=== PATIENT | female | born 1980 | race American Indian/Alaskan Native ===

== ENCOUNTER 2020-12-02 20:08 | Emergency (ER) | payer SELFPAY ==
[~2020-12-02] VITALS: Ht 160 cm; Wt 119.6 kg
[2020-12-02] MEDS ORDERED: DIVA500T9 PO (20:31)
[2020-12-02] MEDS ORDERED: HYDR12.55 PO (20:31)
[2020-12-02] MEDS ORDERED: CYCL5TAB PO (20:31)
[2020-12-02] MEDS ORDERED: IBUP200C25 PO (20:31)
[2020-12-02] MEDS ORDERED: CLON0.12 PO (20:31)
[2020-12-02] MEDS ORDERED: NS 500 ML IV ONE (20:40)
[2020-12-02] MEDS ORDERED: levETIRAcetam INJection 1,000 MG in D5W 100 ML IV ONE (20:45)
[2020-12-02 21:01] LABS: BASO # 0.1 10^3/uL (0.0-0.2); BASO % 0.5 % (0.0-1.0); EOS % 0.4 % (0.0-3.0); HEMATOCRIT 46.7 % (36.0-47.0); LYMPH # 1.4 10^3/uL (1.5-5.0); MEAN CORPUSCULAR HEMOGLOBIN 31.5 pg (27.0-33.0); MEAN CORPUSCULAR HGB CONC 34.3 g/dl (32.0-36.5); MEAN CORPUSCULAR VOLUME 91.9 fl (80.0-96.0); MONO # 0.6 10^3/uL (0.0-0.8); MONO % 5.2 % (2.0-8.0); NEUTROPHILS # 9.2 10^3/uL (1.5-8.5); NEUTROPHILS % 81.4 % (36.0-66.0); PLATELET COUNT, AUTOMATED 250 10^3/uL (150-450); RED BLOOD COUNT 5.08 10^6/uL (4.00-5.40); WHITE BLOOD COUNT 11.3 10^3/uL (4.0-10.0)
[2020-12-02 21:03] LABS: OSMOLALITY SERUM 287 MOSM/KG (275-295)
[2020-12-02 21:14] LABS: ACETAMINOPHEN LEVEL < 2.0 UG/ML (10.0-30.0); ALBUMIN 3.8 GM/DL (3.2-5.2); ALT/SGPT 25 U/L (12-78); BILIRUBIN,DIRECT 0.1 MG/DL (0.0-0.2); BILIRUBIN,TOTAL 0.5 MG/DL (0.2-1.0); BLOOD UREA NITROGEN 13 MG/DL (7-18); CALCIUM LEVEL 9.7 MG/DL (8.5-10.1); CARBON DIOXIDE LEVEL 31 MEQ/L (21-32); CHLORIDE LEVEL 98 MEQ/L (98-107); CK-MB VALUE MASS < 1.0 NG/ML (<3.6); CPK CREATINE PHOSPHOKINASE 147 U/L (26-192); CREATININE FOR GFR 0.91 MG/DL (0.55-1.30); ETHYL ALCOHOL (ETHANOL) < 0.003 % (0.000-0.010); GLOMERULAR FILTRATION RATE > 60.0 (>58); GLUCOSE, FASTING 117 MG/DL (70-100); MB/CK RELATIVE INDEX 0.68 (< OR =4); SALICYLATE LEVEL 4.5 MG/DL (5.0-30.0); SODIUM LEVEL 135 MEQ/L (136-145); TOTAL PROTEIN 7.3 GM/DL (6.4-8.2); TROPONIN I < 0.02 NG/ML (< 0.10); VALPROIC ACID (DEPAKOTE) 60.6 UG/ML (50.0-100.0)
--- NOTE | 2020-12-02 21:30 | REPVR ---
PROCEDURE INFORMATION: Exam: XR Chest Exam date and time: 12/02/2020 9:02 PM Age: 39 years old Clinical indication: Other: AMS; Additional info: Altered mental status TECHNIQUE: Imaging protocol: XR of the chest. Views: 1 view. COMPARISON: No relevant prior studies available. FINDINGS: Lungs: Unremarkable. No consolidation. Pleural spaces: Unremarkable. No pleural effusion. No pneumothorax. Heart/Mediastinum: Unremarkable. No cardiomegaly. Bones/joints: Unremarkable. IMPRESSION: No acute findings. Electronically signed by: Napoleon Cade On 12/02/2020 21:30:08 PM
[2020-12-02 21:40] LABS: AMPHETAMINES LEVEL URINE NEGATIVE (NEGATIVE); BARBITURATES URINE NEGATIVE (NEGATIVE); BENZODIAZEPINES URINE NEGATIVE (NEGATIVE); CANNABINOIDS URINE POSITIVE (NEGATIVE); COCAINE METABOLITE URINE NEGATIVE (NEGATIVE); METHADONE URINE NEGATIVE (NEGATIVE); OPIATES URINE NEGATIVE (NEGATIVE); PHENCYCLIDINE URINE NEGATIVE (NEGATIVE)
--- NOTE | 2020-12-02 21:56 | REPVR ---
PROCEDURE INFORMATION: Exam: CT Head Without Contrast Exam date and time: 12/02/2020 9:53 PM Age: 39 years old Clinical indication: Altered mental status/memory loss TECHNIQUE: Imaging protocol: Computed tomography of the head without contrast. Radiation optimization: All CT scans at this facility use at least one of these dose optimization techniques: automated exposure control; mA and/or kV adjustment per patient size (includes targeted exams where dose is matched to clinical indication); or iterative reconstruction. COMPARISON: No relevant prior studies available. FINDINGS: Brain: Normal. No hemorrhage. Unremarkable white matter. No mass effect. Postoperative encephalomalacia base of the left frontal lobe. Cerebral ventricles: No ventriculomegaly. Bones/joints: Status post left frontal craniotomy. Paranasal sinuses: Visualized sinuses are unremarkable. No fluid levels. Mastoid air cells: Visualized mastoid air cells are well aerated. Soft tissues: Unremarkable. IMPRESSION: No acute findings. Electronically signed by: Napoleon Cade On 12/02/2020 21:56:51 PM
[2020-12-02 23:52] VITALS: BP 141/81
--- NOTE | 2020-12-03 02:47 | ECGEPIP ---
[facility] - ED Test Date: 2020-12-02 Pat Name: GREG BARRIGA Department: Room: - Gender: Female Pharmacy Care Coordinator: : 1980 Requested By: MANOJ CORTEZ Order Number: [id number] Reading MD: Chase Tillman Measurements Intervals [place] Rate: 89 P: 59 VT: 162 QRS: -37 QRSD: 94 T: 49 QT: 360 QTc: 438 Interpretive Statements Normal sinus rhythm Left axis deviation Minimal voltage criteria for LVH, may be normal variant ( [place] product ) POOR R WAVE PROGRESSION NO PRIORS FOR COMPARISON Electronically Signed on 12-03-2020 2:47:20 EDT by Chase Tillman
== END 2020-12-02 23:54 | disposition left against medical advice (07) ==
LOC: M ED 20:08
DX: G40.909 Epilepsy, unspecified, not intractable, without status epilepticus (principal); I10 Essential (primary) hypertension; J45.909 Unspecified asthma, uncomplicated; F12.20 Cannabis dependence, uncomplicated; Z79.899 Other long term (current) drug therapy
CPT/HCPCS: 70450; 71045; 80048; 80076; 80143; 80164; 80307; 81001; 82077; 82140; 82550; 82553; 83605; 83930; 84443; 84484; 85025; 93005; 93041; 94760; 96361; 96374; 99285; J1953

== ENCOUNTER 2022-09-14 17:50 | Emergency (ER) | payer MEDICARE, SELFPAY ==
[~2022-09-14] VITALS: Ht 157.5 cm; Wt 98.0 kg
[~2022-09-14 17:50] MED LIST: CLON0.12 PO; CYCL5TAB PO; DIVA500T9 PO; HYDR12.55 PO; IBUP200C25 PO
[2022-09-14 17:52] VITALS: BP 144/86
[2022-09-14] MEDS ORDERED: EPIN0.3I11 (18:09)
[2022-09-14] MEDS ORDERED: BUDE0.5S6 NEB (18:09)
[2022-09-14] MEDS ORDERED: VIMP100T PO ×2 (18:09→22:46)
[2022-09-14] MEDS ORDERED: SUMA100T2 (18:09)
[2022-09-14] MEDS ORDERED: PROP80CA (18:09)
[2022-09-14] MEDS ORDERED: ATOR1TAB19 (18:09)
[2022-09-14] MEDS ORDERED: OXYC-517 (18:09)
[2022-09-14] MEDS ORDERED: ALBU8.5H (18:09)
[2022-09-14] MEDS ORDERED: TRAZ-186 (18:09)
[2022-09-14] MEDS ORDERED: ZONI100C67 (18:09)
[2022-09-14] MEDS ORDERED: ONDA-83 (18:09)
[2022-09-14] MEDS ORDERED: BUPR150T12 (18:09)
[2022-09-14] MEDS ORDERED: NS 1,000 ML IV ONE (19:25)
[2022-09-14 20:16] LABS: BASO # 0.1 10^3/uL (0.0-0.2); BASO % 0.8 % (0.0-1.0); EOS # 0.2 10^3/uL (0.0-0.5); EOS % 1.5 % (0.0-3.0); HEMATOCRIT 43.2 % (36.0-47.0); HEMOGLOBIN 15.1 g/dl (12.0-15.5); LYMPH # 2.3 10^3/uL (1.5-5.0); MEAN CORPUSCULAR HEMOGLOBIN 30.7 pg (27.0-33.0); MEAN CORPUSCULAR VOLUME 87.8 fl (80.0-96.0); MONO # 0.6 10^3/uL (0.0-0.8); NEUTROPHILS # 6.7 10^3/uL (1.5-8.5); NEUTROPHILS % 68.4 % (36.0-66.0); PLATELET COUNT, AUTOMATED 254 10^3/uL (150-450); RED BLOOD COUNT 4.92 10^6/uL (4.00-5.40); WHITE BLOOD COUNT 9.9 10^3/uL (4.0-10.0)
[2022-09-14] MEDS ORDERED: KETOROLAC 60MG 2ML VIAL IM ONE (20:30)
[2022-09-14 20:56] LABS: RSV AMPLIFICATION NEGATIVE (NEGATIVE)
[2022-09-14 21:06] LABS: ALBUMIN 4.2 G/DL (3.2-5.2); ALKALINE PHOSPHATASE 70 U/L (46-116); ALT/SGPT 18 U/L (7.0-40); AST/SGOT 33 U/L (<34); BILIRUBIN,TOTAL 0.6 MG/DL (0.3-1.2); BLOOD UREA NITROGEN 17 MG/DL (9-23); CARBON DIOXIDE LEVEL 26 MMOL/L (20-31); CHLORIDE LEVEL 109 MMOL/L (98-107); CPK CREATINE PHOSPHOKINASE 116 U/L (34-145); CREATININE FOR GFR 0.79 MG/DL (0.55-1.30); GLOMERULAR FILTRATION RATE > 60.0 (>58); GLUCOSE, FASTING 93 MG/DL (60-100); POTASSIUM SERUM 4.5 MMOL/L (3.5-5.1); SODIUM LEVEL 140 MMOL/L (136-145); TOTAL PROTEIN 7.1 G/DL (5.7-8.2)
[2022-09-14 21:12] LABS: HCG, SERUM QUALITATIVE NEGATIVE (NEGATIVE)
[2022-09-14] MEDS ORDERED: LACOSAMIDE 50 MG TAB (VIMPAT) PO ONE ×2 (21:35)
[2022-09-14] MEDS ORDERED: ZONISAMIDE 100 MG CAP (ZONEGRAN) PO ONE (21:35)
[2022-09-14 22:28] LABS: MAGNESIUM LEVEL 2.1 MG/DL (1.8-2.4)
[2022-09-14] MEDS ORDERED: ZONI100C67 PO (22:46)
== END 2022-09-14 22:58 | disposition home or self-care (01) ==
LOC: M ED 17:50
DX: G40.909 Epilepsy, unspecified, not intractable, without status epilepticus (principal); M79.10 Myalgia, unspecified site; R51.9 Headache, unspecified; E78.5 Hyperlipidemia, unspecified; G93.89 Other specified disorders of brain; Z79.899 Other long term (current) drug therapy
CPT/HCPCS: 70450; 71045; 72125; 80053; 82550; 83735; 84703; 85025; 87631; 96372; 99283; J1885

== ENCOUNTER 2023-09-12 13:26 | Emergency (ER) | payer MEDICARE, SELFPAY ==
[~2023-09-12] VITALS: Ht 157.5 cm; Wt 92.3 kg
[~2023-09-12 13:26] MED LIST changes: +ALBU8.5H; +ATOR1TAB19; +BUDE0.5S6 NEB; +BUPR150T12; +EPIN0.3I11; +ONDA-83; +OXYC-517; +PROP80CA; +SUMA100T2; +TRAZ-186; +VIMP100T PO; +ZONI100C67; +ZONI100C67 PO
[2023-09-12] MEDS ORDERED: QUET100T2 PO (13:41)
[2023-09-12] MEDS ORDERED: ISOVUE-370 76% 100ML VIAL As Ordered ONE (16:42)
[2023-09-12] MEDS: KETOROLAC 30 MG/ML 1ML VIAL IV ONE (16:47)
[2023-09-12 16:50] LABS: BASO # 0.1 10^3/uL (0.0-0.2); BASO % 0.9 % (0.0-1.0); EOS # 0.2 10^3/uL (0.0-0.5); EOS % 1.7 % (0.0-3.0); MEAN CORPUSCULAR HEMOGLOBIN 31.1 pg (27.0-33.0); MEAN CORPUSCULAR HGB CONC 34.9 g/dl (32.0-36.5); MONO # 0.6 10^3/uL (0.0-0.8); MONO % 6.3 % (2.0-8.0); NEUTROPHILS # 5.9 10^3/uL (1.5-8.5); NEUTROPHILS % 67.6 % (36.0-66.0); PLATELET COUNT, AUTOMATED 229 10^3/uL (150-450); RED BLOOD COUNT 4.83 10^6/uL (4.00-5.40); WHITE BLOOD COUNT 8.7 10^3/uL (4.0-10.0)
[2023-09-12 17:01] LABS: ERYTHROCYTE SEDIMENTATION RATE 2 mm/hr (0-20)
[2023-09-12] MEDS ORDERED: TRAM50TA2 PO (18:35)
[2023-09-12 18:50] VITALS: BP 167/92; TEMP 97.9; O2SAT 100
== END 2023-09-12 18:51 | disposition home or self-care (01) ==
LOC: M ED 13:26
DX: N94.819 Vulvodynia, unspecified (principal); I10 Essential (primary) hypertension; F17.210 Nicotine dependence, cigarettes, uncomplicated; Z79.51 Long term (current) use of inhaled steroids; Z79.899 Other long term (current) drug therapy; Z79.1 Long term (current) use of non-steroidal anti-inflammatories (NSAID)
CPT/HCPCS: 74177; 80047; 83605; 85025; 85652; 86140; 87040; 87070; 87077; 87186; 96374; 99284; J1885; Q9967

== ENCOUNTER 2024-09-05 14:47 | Inpatient (IN) | payer MEDICARE, SELFPAY ==
[~2024-09-05] VITALS: Ht 157.5 cm; Wt 99.8 kg
[~2024-09-05 14:47] MED LIST changes: -ALBU8.5H; +ALBU8.5H INH; -ATOR1TAB19; +ATOR1TAB19 PO; -CYCL5TAB PO; +CYCL5TAB4 PO; -EPIN0.3I11; +EPIN0.3I11 INJ; -ONDA-83; +ONDA-83 PO; -PROP80CA; +PROP80CA PO; +QUET100T2 PO; -SUMA100T2; +SUMA100T2 PO; +TRAM50TA2 PO; -TRAZ-186; +TRAZ-186 PO
[2024-09-05 15:28] LABS: HEMATOCRIT 42.6 % (36.0-47.0); HEMOGLOBIN 14.4 g/dl (12.0-15.5); MEAN CORPUSCULAR HEMOGLOBIN 29.3 pg (27.0-33.0); MEAN CORPUSCULAR HGB CONC 33.8 g/dl (32.0-36.5); MEAN CORPUSCULAR VOLUME 86.8 fl (80.0-96.0); PLATELET COUNT, AUTOMATED 309 10^3/uL (150-450); RED BLOOD COUNT 4.91 10^6/uL (4.00-5.40); WHITE BLOOD COUNT 9.7 10^3/uL (4.0-10.0)
[2024-09-05 15:58] LABS: AMPHETAMINES LEVEL URINE NEGATIVE (NEGATIVE); BARBITURATES URINE NEGATIVE (NEGATIVE); BENZODIAZEPINES URINE NEGATIVE (NEGATIVE); METHADONE URINE NEGATIVE (NEGATIVE); OPIATES URINE NEGATIVE (NEGATIVE)
[2024-09-05 15:59] LABS: PHENCYCLIDINE URINE NEGATIVE (NEGATIVE)
[2024-09-05 16:02] LABS: CANNABINOIDS URINE POSITIVE (NEGATIVE); COCAINE METABOLITE URINE POSITIVE (NEGATIVE)
[2024-09-05 16:28] LABS: ETHYL ALCOHOL (ETHANOL) < 0.003 % (0.000-0.010)
[2024-09-05 16:29] LABS: SALICYLATE LEVEL < 3.0 MG/DL (<30)
[2024-09-05 16:30] LABS: ALKALINE PHOSPHATASE 84 U/L (35-104); ALT/SGPT 19 U/L (7.0-40); AST/SGOT 12 U/L (<34); BILIRUBIN,DIRECT 0.2 MG/DL (<0.4); BILIRUBIN,TOTAL 0.6 MG/DL (0.3-1.2); BLOOD UREA NITROGEN 13 MG/DL (9-23); CARBON DIOXIDE LEVEL 25 MMOL/L (20-31); CHLORIDE LEVEL 109 MMOL/L (98-107); GLOMERULAR FILTRATION RATE > 60.0 (>58); GLUCOSE, FASTING 96 MG/DL (60-100); SODIUM LEVEL 143 MMOL/L (136-145); TOTAL PROTEIN 7.1 G/DL (5.7-8.2)
[2024-09-05 16:32] LABS: THYROID STIMULATING HORMONE 0.973 uIU/ML (0.55-4.78)
[2024-09-05] MEDS ORDERED: ZONI100C67 PO (17:06)
[2024-09-05] MEDS ORDERED: OXYC1TAB23 PO (17:09)
[2024-09-05] MEDS ORDERED: BREO1INH INH (17:09)
[2024-09-05] MEDS ORDERED: ACET650T15 PO (17:15)
[2024-09-05] MEDS ORDERED: ZYRT10TA12 PO (17:15)
[2024-09-05] MEDS ORDERED: VITA100018 PO (17:15)
[2024-09-05] MEDS ORDERED: D3 H2000 PO (17:15)
[2024-09-05] MEDS ORDERED: ALBU0.63 INH (17:15)
[2024-09-05] MEDS ORDERED: FLON1SPR NARES (17:15)
[2024-09-05] MEDS ORDERED: HOME MED LIST COMPLETE! XX SCH (17:20)
[2024-09-05] MEDS: ACETAMINOPHEN 325 MG TAB PO ONE (18:22)
[2024-09-05] MEDS: IBUPROFEN 600MG TAB PO ONE (20:19)
[2024-09-05] MEDS: SUMAtriptan SUCCINATE 50MG TABLET PO ONE (20:19)
[2024-09-05] MEDS: traZODone 100 MG TAB PO ONE (23:03)
[2024-09-05] MEDS: CYCLOBENZAPRINE 5MG TABLET PO ONE (23:04)
[2024-09-05] MEDS: ZONISAMIDE 100 MG CAP (ZONEGRAN) PO ONE (23:04)
[2024-09-05] MEDS: PERCOCET 5MG/325MG TAB PO ONE (23:35)
[2024-09-06] MEDS ORDERED: FLUTICASONE PROP 0.05% NASAL SPRAY 16 GM (FLONASE) NARES PRN (07:25)
[2024-09-06] MEDS ORDERED: CYCLOBENZAPRINE 5MG TABLET PO PRN (07:25)
[2024-09-06] MEDS ORDERED: ONDANSETRON 4MG TAB PO PRN ×2 (07:25→12:45)
[2024-09-06] MEDS: PROPRANOLOL 80MG LA CAP PO SCH (09:00)
[2024-09-06] MEDS: ZONISAMIDE 100 MG CAP (ZONEGRAN) PO SCH ×2 (09:00→21:15)
[2024-09-06] MEDS ORDERED: PROPRANOLOL 80MG LA CAP PO SCH (09:00)
[2024-09-06 10:15] VITALS: BP 167/88; TEMP 97; O2SAT 98
[2024-09-06] MEDS: SUMAtriptan SUCCINATE 25MG TABLET PO PRN (10:31)
[2024-09-06] MEDS: ATORVASTATIN 20 MG TAB PO SCH (10:32)
[2024-09-06] MEDS: VITAMIN D 1,000 INTERNATIONAL UNITS TABLET PO SCH (10:33)
[2024-09-06] MEDS: CYANOCOBALAMIN 500 MCG TAB PO SCH (10:33)
[2024-09-06] MEDS: CETIRIZINE (ZyrTEC) 10 MG TAB PO SCH (10:33)
[2024-09-06] MEDS ORDERED: IBUPROFEN 400MG TAB PO PRN (11:40)
[2024-09-06] MEDS ORDERED: MAALOX 30 ML SUSP *UDC PO PRN (11:40)
[2024-09-06] MEDS ORDERED: traZODone 50 MG TAB PO PRN (11:40)
[2024-09-06] MEDS ORDERED: ALBUTEROL 90 MCG/ACT 8GM HFA INHALER INH PRN (11:45)
[2024-09-06] MEDS ORDERED: **SFRHE** EPINEPHrine (EPIPEN) 0.3MG/0.3ML SYRINGE INJ SCH (11:45)
[2024-09-06] MEDS ORDERED: ALBUTEROL SULFATE 2.5MG/0.5ML INH NEB SOLN INH PRN (11:45)
[2024-09-06 11:51] LABS: HEMATOCRIT 42.2 % (36.0-47.0); HEMOGLOBIN 14.7 g/dl (12.0-15.5); MEAN CORPUSCULAR HEMOGLOBIN 29.9 pg (27.0-33.0); MEAN CORPUSCULAR HGB CONC 34.8 g/dl (32.0-36.5); MEAN CORPUSCULAR VOLUME 85.9 fl (80.0-96.0); PLATELET COUNT, AUTOMATED 281 10^3/uL (150-450); RED BLOOD COUNT 4.91 10^6/uL (4.00-5.40); WHITE BLOOD COUNT 8.4 10^3/uL (4.0-10.0)
[2024-09-06 12:19] LABS: BLOOD UREA NITROGEN 16 MG/DL (9-23); CALCIUM LEVEL 9.1 MG/DL (8.5-10.1); CARBON DIOXIDE LEVEL 24 MMOL/L (20-31); CHLORIDE LEVEL 114 MMOL/L (98-107); CREATININE FOR GFR 0.85 MG/DL (0.55-1.30); GLOMERULAR FILTRATION RATE > 60.0 (>58); GLUCOSE, FASTING 109 MG/DL (60-100); POTASSIUM SERUM 3.9 MMOL/L (3.5-5.1); SODIUM LEVEL 143 MMOL/L (136-145)
[2024-09-06] MEDS: OLANZapine ORAL DISINTEGRATING TAB 5MG PO PRN (12:24)
[2024-09-06] MEDS: ACETAMINOPHEN 325 MG TAB PO PRN (12:24)
[2024-09-06] MEDS: SERTRALINE HCL 25 MG TABLET PO SCH (13:20)
[2024-09-06] MEDS: OLANZapine 5 MG TAB PO SCH (13:20)
[2024-09-06 13:31] VITALS: BP 178/98
[2024-09-06] MEDS: LORazepam 1 MG TAB PO ONE (13:40)
[2024-09-06] MEDS: PROPRANOLOL 20 MG TAB PO ONE (13:40)
[2024-09-06 14:18] VITALS: BP 148/97; TEMP 97; O2SAT 98
[2024-09-06 15:06] LABS: HCG, SERUM QUALITATIVE NEGATIVE (NEGATIVE)
[2024-09-06 15:13] LABS: INR 0.98; PROTHROMBIN TIME 13.3 SECONDS (12.5-14.5)
[2024-09-06 16:13] VITALS: BP 156/92
[2024-09-06] MEDS ORDERED: ZONISAMIDE 100 MG CAP (ZONEGRAN) PO SCH (21:00)
[2024-09-06] MEDS ORDERED: traZODone 50 MG TAB PO SCH (21:00)
[2024-09-07] MEDS ORDERED: UNRESOLVED CLARIFICATION ENTRY XX SCH (00:01)
[2024-09-07 06:27] VITALS: BP 150/77; TEMP 97.9; O2SAT 98
[2024-09-07] MEDS: FLUTICASONE PROP 0.05% NASAL SPRAY 16 GM (FLONASE) NARES SCH (09:00)
[2024-09-07] MEDS: CETIRIZINE (ZyrTEC) 10 MG TAB PO SCH (09:00)
[2024-09-07] MEDS: CYANOCOBALAMIN 500 MCG TAB PO SCH (09:00)
[2024-09-07] MEDS: ATORVASTATIN 10 MG TAB PO SCH (09:00)
[2024-09-07] MEDS: SUMAtriptan SUCCINATE 25MG TABLET PO PRN (10:47)
[2024-09-07 10:53] LABS: HEMATOCRIT 42.3 % (36.0-47.0); HEMOGLOBIN 14.5 g/dl (12.0-15.5); MEAN CORPUSCULAR HEMOGLOBIN 29.8 pg (27.0-33.0); MEAN CORPUSCULAR HGB CONC 34.3 g/dl (32.0-36.5); PLATELET COUNT, AUTOMATED 284 10^3/uL (150-450); RED BLOOD COUNT 4.86 10^6/uL (4.00-5.40)
[2024-09-07 11:18] LABS: ALKALINE PHOSPHATASE 79 U/L (35-104); ALT/SGPT 17 U/L (7.0-40); AST/SGOT 11 U/L (<34); BILIRUBIN,TOTAL 0.6 MG/DL (0.3-1.2); BLOOD UREA NITROGEN 11 MG/DL (9-23); CALCIUM LEVEL 9.3 MG/DL (8.5-10.1); CARBON DIOXIDE LEVEL 24 MMOL/L (20-31); CHLORIDE LEVEL 110 MMOL/L (98-107); CREATININE FOR GFR 0.79 MG/DL (0.55-1.30); GLOMERULAR FILTRATION RATE > 60.0 (>58); GLUCOSE, FASTING 110 MG/DL (60-100); POTASSIUM SERUM 3.7 MMOL/L (3.5-5.1); SODIUM LEVEL 143 MMOL/L (136-145)
[2024-09-07] MEDS: CYCLOBENZAPRINE 5MG TABLET PO PRN (12:30)
[2024-09-07] MEDS: PERCOCET 5MG/325MG TAB PO PRN (12:30)
[2024-09-07 15:28] VITALS: BP 162/96; TEMP 97.1; O2SAT 98
[2024-09-07] MEDS: diphenhydrAMINE 25MG CAP PO PRN (18:23)
[2024-09-08 06:36] VITALS: BP 160/90; TEMP 96.7; O2SAT 99
[2024-09-08] MEDS: PROPRANOLOL 80MG LA CAP PO SCH (09:38)
[2024-09-08] MEDS: ADVAIR HFA 115/21MCG INHALER INH SCH (11:10)
[2024-09-08] MEDS: PERCOCET 5MG/325MG TAB PO SCH (11:36)
[2024-09-08] MEDS: MOM 30ML SUSPENSION UDC PO PRN (12:45)
[2024-09-08 15:58] VITALS: BP 150/84; TEMP 97.4; O2SAT 98
[2024-09-09 07:00] VITALS: BP 150/99; TEMP 97.1; O2SAT 97
[2024-09-09] MEDS: FLUZONE VACCINE TRIVALENT PF(2024-25) 0.5ML SYRINGE IM.IMMUN ONE (09:05)
[2024-09-09 09:09] VITALS: BP 160/88
[2024-09-09] MEDS: NICOTINE 21MG/24HR 1 EA TRANSDERMAL TD SCH (09:54)
[2024-09-09 16:08] VITALS: BP 142/90; TEMP 98.7; O2SAT 98
[2024-09-10 06:23] VITALS: BP 137/77; TEMP 97.1; O2SAT 98
[2024-09-10 09:03] VITALS: BP 138/82
[2024-09-10 09:08] VITALS: BP 138/82
[2024-09-10] MEDS ORDERED: CYCL5TAB4 PO (10:57)
[2024-09-10] MEDS ORDERED: OLAN1TAB16 PO (10:57)
[2024-09-10] MEDS ORDERED: SERT25TA21 PO (10:57)
[2024-09-10] MEDS ORDERED: ATOR1TAB19 PO (10:57)
[2024-09-10] MEDS ORDERED: SUMA100T2 PO (10:57)
[2024-09-10] MEDS ORDERED: ZONE1CAP PO (10:57)
[2024-09-10] MEDS ORDERED: TRAZ-252 PO (10:57)
[2024-09-10] MEDS ORDERED: INDE80CA9 PO (10:57)
== END 2024-09-10 12:34 | disposition home or self-care (01) | DRG 885 ==
LOC: M ED 14:47 → M ED INP 09-06 09:35 → M PSY 09-06 10:20
PROVIDERS: ADMIT Psychiatry & Neurology Psychiatry; ATTEND Psychiatry & Neurology Psychiatry
DX: F31.81 Bipolar II disorder (principal); R45.851 Suicidal ideations; R10.9 Unspecified abdominal pain; F41.1 Generalized anxiety disorder; F43.10 Post-traumatic stress disorder, unspecified; E78.5 Hyperlipidemia, unspecified; Z91.51 Personal history of suicidal behavior; Z62.810 Personal history of physical and sexual abuse in childhood; Z79.899 Other long term (current) drug therapy; Z88.0 Allergy status to penicillin; Z88.8 Allergy status to other drugs, medicaments and biological substances; Z91.048 Other nonmedicinal substance allergy status

== ENCOUNTER 2024-09-30 20:53 | Emergency (ER) | payer MEDICARE ==
[~2024-09-30] VITALS: Ht 157.5 cm; Wt 100.0 kg
[~2024-09-30 20:53] MED LIST changes: +ACET650T15 PO; +ALBU0.63 INH; +BREO1INH INH; +D3 H2000 PO; +FLON1SPR NARES; +INDE80CA9 PO; +OLAN1TAB16 PO; +OXYC1TAB23 PO; +SERT25TA21 PO; +TRAZ-252 PO; +VITA100018 PO; +ZONE1CAP PO; +ZYRT10TA12 PO
[2024-09-30 21:05] VITALS: BP 147/93; TEMP 98.3; O2SAT 95
== END 2024-09-30 22:07 | disposition left against medical advice (07) ==
LOC: EDBD 20:53 → M ED 20:53
DX: Z53.21 Procedure and treatment not carried out due to patient leaving prior to being seen by health care provider (principal)

== ENCOUNTER 2024-10-18 17:09 | Emergency (ER) | payer MEDICARE ==
[2024-10-18 17:41] VITALS: BP 186/95; TEMP 97.4; O2SAT 99
[2024-10-18] MEDS ORDERED: ISOVUE-370 76% 100ML VIAL As Ordered ONE (17:45)
[2024-10-18 18:03] LABS: BASO # 0.1 10^3/uL (0.0-0.2); BASO % 0.9 % (0.0-1.0); EOS # 0.1 10^3/uL (0.0-0.5); EOS % 1.6 % (0.0-3.0); HEMATOCRIT 41.8 % (36.0-47.0); HEMOGLOBIN 13.9 g/dl (12.0-15.5); LYMPH # 1.7 10^3/uL (1.5-5.0); LYMPH % 21.2 % (24.0-44.0); MEAN CORPUSCULAR HEMOGLOBIN 28.5 pg (27.0-33.0); MEAN CORPUSCULAR HGB CONC 33.3 g/dl (32.0-36.5); MEAN CORPUSCULAR VOLUME 85.7 fl (80.0-96.0); MONO # 0.7 10^3/uL (0.0-0.8); MONO % 8.2 % (2.0-8.0); NEUTROPHILS # 5.6 10^3/uL (1.5-8.5); NEUTROPHILS % 67.9 % (36.0-66.0); PLATELET COUNT, AUTOMATED 290 10^3/uL (150-450); RED BLOOD COUNT 4.88 10^6/uL (4.00-5.40); WHITE BLOOD COUNT 8.2 10^3/uL (4.0-10.0)
[2024-10-18 18:13] LABS: BLOOD UREA NITROGEN 9 MG/DL (9-23); CALCIUM LEVEL 8.4 MG/DL (8.5-10.1); CARBON DIOXIDE LEVEL 27 MMOL/L (20-31); CHLORIDE LEVEL 107 MMOL/L (98-107); CREATININE FOR GFR 0.85 MG/DL (0.55-1.30); GLOMERULAR FILTRATION RATE > 60.0 (>58); GLUCOSE, FASTING 95 MG/DL (60-100); POTASSIUM SERUM 3.9 MMOL/L (3.5-5.1); SODIUM LEVEL 141 MMOL/L (136-145)
[2024-10-18 18:16] LABS: INR 0.99; PARTIAL THROMBOPLASTIN TIME 25.3 SECONDS (24.8-34.2); PROTHROMBIN TIME 13.4 SECONDS (12.5-14.5)
[2024-10-18 18:29] LABS: HCG, SERUM QUALITATIVE NEGATIVE (NEGATIVE)
[2024-10-18 19:45] VITALS: O2SAT 98
[2024-10-18] MEDS: KETOROLAC 30 MG/ML 1ML VIAL IV ONE (19:45)
[2024-10-18 19:46] VITALS: BP 180/81; TEMP 98.2
== END 2024-10-18 20:25 | disposition left against medical advice (07) ==
LOC: M ED 17:09 → EDBD 17:09 → M ED 20:25
DX: G40.909 Epilepsy, unspecified, not intractable, without status epilepticus (principal); R47.01 Aphasia; I10 Essential (primary) hypertension; Z87.820 Personal history of traumatic brain injury; Z91.030 Bee allergy status; Z91.018 Allergy to other foods; Z79.51 Long term (current) use of inhaled steroids; Z79.899 Other long term (current) drug therapy; Z53.9 Procedure and treatment not carried out, unspecified reason
CPT/HCPCS: 70450; 70496; 70498; 71045; 72125; 80047; 80048; 80203; 83605; 84703; 85025; 85610; 85730; 86850; 86900; 86901; 93041; 94760; 96374; 99285; J1885; Q9967

== ENCOUNTER 2024-10-19 07:36 | Emergency (ER) | payer MEDICARE ==
[~2024-10-19] VITALS: Ht 157.5 cm; Wt 97.5 kg
[2024-10-19] MEDS: LORazepam 2 MG/ML 1ML VIAL IV STA ×2 (08:10→13:21)
[2024-10-19 08:12] LABS: IONIZED CALCIUM 4.7 MG/DL (4.5-5.3)
[2024-10-19] MEDS: KETOROLAC 30 MG/ML 1ML VIAL IV ONE (08:17)
[2024-10-19 08:20] LABS: BASO # 0.1 10^3/uL (0.0-0.2); BASO % 0.9 % (0.0-1.0); EOS # 0.2 10^3/uL (0.0-0.5); EOS % 1.6 % (0.0-3.0); HEMATOCRIT 42.5 % (36.0-47.0); HEMOGLOBIN 14.8 g/dl (12.0-15.5); LYMPH % 22.1 % (24.0-44.0); MEAN CORPUSCULAR HEMOGLOBIN 29.4 pg (27.0-33.0); MEAN CORPUSCULAR HGB CONC 34.8 g/dl (32.0-36.5); MEAN CORPUSCULAR VOLUME 84.5 fl (80.0-96.0); MONO # 0.9 10^3/uL (0.0-0.8); MONO % 9.2 % (2.0-8.0); NEUTROPHILS # 6.1 10^3/uL (1.5-8.5); NEUTROPHILS % 65.9 % (36.0-66.0); PLATELET COUNT, AUTOMATED 305 10^3/uL (150-450); RED BLOOD COUNT 5.03 10^6/uL (4.00-5.40); WHITE BLOOD COUNT 9.2 10^3/uL (4.0-10.0)
[2024-10-19 08:37] LABS: ETHYL ALCOHOL (ETHANOL) < 0.003 % (0.000-0.010)
[2024-10-19 08:39] LABS: ALBUMIN 3.8 G/DL (3.2-5.2); ALKALINE PHOSPHATASE 71 U/L (35-104); ALT/SGPT 21 U/L (7.0-40); AST/SGOT 20 U/L (<34); BILIRUBIN,DIRECT 0.2 MG/DL (<0.4); BILIRUBIN,TOTAL 0.6 MG/DL (0.3-1.2); BLOOD UREA NITROGEN 9 MG/DL (9-23); CARBON DIOXIDE LEVEL 22 MMOL/L (20-31); CHLORIDE LEVEL 110 MMOL/L (98-107); GLOMERULAR FILTRATION RATE > 60.0 (>58); GLUCOSE, FASTING 101 MG/DL (60-100); MAGNESIUM LEVEL 1.9 MG/DL (1.8-2.4); PHOSPHORUS LEVEL 3.9 MG/DL (2.5-4.9); POTASSIUM SERUM 3.8 MMOL/L (3.5-5.1); SODIUM LEVEL 141 MMOL/L (136-145); TOTAL PROTEIN 6.6 G/DL (5.7-8.2)
[2024-10-19] MEDS: levETIRAcetam INJection 1,000 MG in IV 1 EA IV ONE (12:55)
[2024-10-19 16:00] VITALS: BP 171/82; TEMP 96.6; O2SAT 92
== END 2024-10-19 16:14 | disposition short-term general hospital (02) ==
LOC: M ED 07:36
DX: G40.89 Other seizures (principal); R00.1 Bradycardia, unspecified; F10.10 Alcohol abuse, uncomplicated; Z91.030 Bee allergy status; Z91.018 Allergy to other foods; Z79.51 Long term (current) use of inhaled steroids; Z79.899 Other long term (current) drug therapy
CPT/HCPCS: 70450; 80048; 80076; 82077; 82140; 82330; 83605; 83735; 84100; 85025; 93005; 93041; 94760; 96374; 96375; 96376; 99285; J1885; J2060